=== PATIENT | female | born 1985 | race Two or more races ===

== ENCOUNTER 2020-03-22 11:10 | Emergency (ER) | payer MEDICAID, OTHER ==
[~2020-03-22] VITALS: Ht 165.1 cm; Wt 59.0 kg
[2020-03-22 11:12] VITALS: BP 114/68
[2020-03-22] MEDS ORDERED: ASPirin 81 mg TAB PO ONE (11:30)
== END 2020-03-22 13:43 | disposition left against medical advice (07) ==
LOC: ER 11:10
DX: R07.89 Other chest pain (principal); J40 Bronchitis, not specified as acute or chronic; F41.9 Anxiety disorder, unspecified; R00.0 Tachycardia, unspecified; F12.10 Cannabis abuse, uncomplicated; F17.210 Nicotine dependence, cigarettes, uncomplicated
CPT/HCPCS: 93005

== ENCOUNTER 2021-07-11 19:47 | Observation (INO) | payer MEDICAID ==
[2021-07-11 21:01] LABS: Urine Amorphous Crystal FEW /hpf (None Seen); Urine Bacteria FEW /hpf (None Seen); Urine Blood Negative /uL (Negative); Urine Mucus FEW (None Seen); Urine Specific Gravity 1.009 (1.001-1.035); Urine WBC 1 /hpf (0 - 5)
[2021-07-11 21:20] LABS: Basophils # (auto) 0.1 10 ^3/uL (0-0.2); Basophils % (auto) 0.9 % (0.0-2.0); Eosinophils # (auto) 0.1 10 ^3/uL (0-0.8); Eosinophils % (auto) 0.9 % (0.0-7.0); Hematocrit 34.8 % (36.0-46.0); Hemoglobin 11.4 g/dL (12.2-16.2); Lymphocytes # (auto) 1.9 10 ^3/uL (0.4-5.4); Mean Corpuscular Hemoglobin 31.3 pg (28.0-32.0); Mean Corpuscular Hgb Conc. 32.8 g/dL (32.0-36.0); Mean Corpuscular Volume 95.5 fL (80.0-100.0); Monocytes # (auto) 0.5 10 ^3/uL (0-1.3); Monocytes % (auto) 5.6 % (0.0-12.0); Neutrophils # (auto) 6.1 10 ^3/uL (1.6-8.6); Neutrophils % (auto) 70.6 % (37.0-80.0); Nucleated Red Blood Cells % 0.2 %; Red Blood Cells 3.65 10^6/uL (4.0-5.20); Red Cell Distribution Width 13.6 % (11.8-14.3); White Blood Cell 8.7 10^3/uL (4.4-10.8)
[2021-07-11 21:35] LABS: INR 0.9 (0.9-1.15)
[2021-07-11 21:35] LABS: Alcohol, Urine < 3.0 mg/dL (0-10); Amphetamine Screen, Urine POSITIVE (NEGATIVE); Barbiturate Scree,Urine NEGATIVE (NEGATIVE); Benzodiazephine Screen, Urine NEGATIVE (NEGATIVE); Cannabinoid Screen, Urine NEGATIVE (NEGATIVE); Cocaine Screen, Urine NEGATIVE (NEGATIVE)
[2021-07-11 21:40] LABS: Albumin 2.3 g/dL (3.4-5.0); Calcium 8.5 mg/dL (8.5-10.1); Potassium 3.5 mmol/L (3.5-5.1)
[2021-07-11 21:42] LABS: Opiate Scree,Urine NEGATIVE (NEGATIVE); Phencyclidine Screen, Urine NEGATIVE (NEGATIVE)
[2021-07-11 21:44] LABS: BUN/Creatinine Ratio 11.3; Bilirubin, Total 0.2 mg/dL (0.2-1.0); Total Protein 6.6 g/dL (6.4-8.2)
[2021-07-11] MEDS ORDERED: TERBUTALINE SULFATE 1 MG/ML 1ML VIAL SC ONE ×2 (22:17→22:30)
[2021-07-11] MEDS ORDERED: TERBUTALINE SULFATE 1 MG/ML 1ML VIAL SC SCH (22:45)
[2021-07-13 06:06] LABS: RPR Non Reactive (Non Reactive)
== END 2021-07-11 23:30 | disposition home or self-care (01) ==
LOC: LDRP 19:47
PROVIDERS: ADMIT Obstetrics & Gynecology; ATTEND Obstetrics & Gynecology
DX: O62.9 Abnormality of forces of labor, unspecified (principal); O34.219 Maternal care for unspecified type scar from previous cesarean delivery; O99.333 Smoking (tobacco) complicating pregnancy, third trimester; F17.210 Nicotine dependence, cigarettes, uncomplicated; Z3A.38 38 weeks gestation of pregnancy
CPT/HCPCS: 36415; 59025; 76805; 80053; 80307; 81001; 81002; 85025; 85610; 85730; 86592; 86703; 86762; 86850; 86900; 86901; 87340; 94760; 96372; G0378

== ENCOUNTER 2021-07-13 09:13 | Inpatient (IN) | payer MEDICAID ==
[~2021-07-13] VITALS: Ht 170.2 cm; Wt 77.1 kg
[2021-07-13] VITALS (11 sets, daily range): BP systolic 100–137; BP diastolic 66–93
[2021-07-13] MEDS ORDERED: LACTATED RINGER'S 1,000 ML IV ONE (10:00)
[2021-07-13] MEDS ORDERED: ceFAZolin 1GM/50ML 50 ML IV ONE ×2 (10:00→10:03)
[2021-07-13 10:03] LABS: Urine Bacteria MOD /hpf (None Seen); Urine Blood 2+ /uL (Negative); Urine Specific Gravity 1.014 (1.001-1.035); Urine WBC 104 /hpf (0 - 5)
[2021-07-13 10:16] LABS: Amphetamine Screen, Urine POSITIVE (NEGATIVE); Barbiturate Scree,Urine NEGATIVE (NEGATIVE); Benzodiazephine Screen, Urine NEGATIVE (NEGATIVE); Cannabinoid Screen, Urine NEGATIVE (NEGATIVE); Cocaine Screen, Urine NEGATIVE (NEGATIVE); Opiate Scree,Urine NEGATIVE (NEGATIVE); Phencyclidine Screen, Urine NEGATIVE (NEGATIVE)
[2021-07-13 10:17] LABS: Alcohol, Urine < 3.0 mg/dL (0-10)
[2021-07-13] MEDS ORDERED: MORPHINE SULF PF 2 MG/2 ML SYRG ONE (10:27)
[2021-07-13] MEDS ORDERED: fentaNYL CITRATE 100 MCG/2 ML VL ONE (10:27)
[2021-07-13 10:31] LABS: Basophils # (auto) 0 10 ^3/uL (0-0.2); Basophils % (auto) 0.5 % (0.0-2.0); Eosinophils # (auto) 0 10 ^3/uL (0-0.8); Eosinophils % (auto) 0.4 % (0.0-7.0); Hematocrit 35.3 % (36.0-46.0); Hemoglobin 11.9 g/dL (12.2-16.2); Lymphocytes # (auto) 1.6 10 ^3/uL (0.4-5.4); Lymphocytes % (auto) 16.2 % (10.0-50.0); Mean Corpuscular Hemoglobin 32.4 pg (28.0-32.0); Mean Corpuscular Hgb Conc. 33.6 g/dL (32.0-36.0); Mean Corpuscular Volume 96.4 fL (80.0-100.0); Monocytes # (auto) 0.5 10 ^3/uL (0-1.3); Monocytes % (auto) 5.2 % (0.0-12.0); Neutrophils # (auto) 7.4 10 ^3/uL (1.6-8.6); Neutrophils % (auto) 77.7 % (37.0-80.0); Nucleated Red Blood Cells % 0.3 %; Red Blood Cells 3.66 10^6/uL (4.0-5.20); Red Cell Distribution Width 13.7 % (11.8-14.3); White Blood Cell 9.6 10^3/uL (4.4-10.8)
[2021-07-13 10:48] LABS: Albumin 2.3 g/dL (3.4-5.0); Calcium 8.5 mg/dL (8.5-10.1); Potassium 3.6 mmol/L (3.5-5.1)
[2021-07-13 10:49] LABS: INR 0.92 (0.9-1.15); Partial Thromboplastin Time 27.2 sec (23.6-33.0)
[2021-07-13 10:52] LABS: BUN/Creatinine Ratio 11.1; Bilirubin, Total 0.3 mg/dL (0.2-1.0); Total Protein 6.8 g/dL (6.4-8.2); Uric Acid 5.2 mg/dL (2.6-6.0)
[2021-07-13] MEDS ORDERED: MORPHINE SULFATE INJECTION 2 MG/ML SYRG IV PRN ×2 (11:30→12:00)
[2021-07-13] MEDS ORDERED: LACT. RINGERS/OXYTOCIN 20UNITS 1,000 ML IV ONE (11:30)
[2021-07-13] MEDS ORDERED: GUM (CHEWING) 1 GUM CHEW CHEW ONE (11:30)
[2021-07-13] MEDS ORDERED: ONDANSETRON HCL 4 MG/2 ML VIAL IV PRN ×2 (11:30→12:00)
[2021-07-13] MEDS ORDERED: ceFAZolin 1GM/50ML 50 ML IV SCH ×2 (11:30→19:00)
[2021-07-13] MEDS ORDERED: NALBUPHINE HCL 10 MG/1ml INJECTION SUBCUT ONE (12:00)
[2021-07-13] MEDS ORDERED: diphenhdrAMINE HCL 50 MG/1 ML VL IV PRN (14:30)
[2021-07-13] MEDS: ACETAMINOPHEN IV 1000 MG/100ML (10MG/ML) IV PRN (14:55)
[2021-07-13] MEDS: metroNIDAZOLE 500MG/100ML 100 ML IV SCH (17:20)
[2021-07-13] MEDS: LACTATED RINGER'S 1,000 ML IV SCH (17:47)
[2021-07-13] MEDS: ceFAZolin 1GM/50ML 50 ML IV SCH (19:12)
[2021-07-13] MEDS: HYDROmorphone HCL 2 MG/ML VL IV PRN (20:42)
[2021-07-13 21:54] LABS: Basophils # (auto) 0 10 ^3/uL (0-0.2); Basophils % (auto) 0.3 % (0.0-2.0); Eosinophils # (auto) 0.1 10 ^3/uL (0-0.8); Eosinophils % (auto) 0.9 % (0.0-7.0); Hematocrit 30.1 % (36.0-46.0); Hemoglobin 10.3 g/dL (12.2-16.2); Lymphocytes # (auto) 1.7 10 ^3/uL (0.4-5.4); Lymphocytes % (auto) 21.4 % (10.0-50.0); Mean Corpuscular Hgb Conc. 34.3 g/dL (32.0-36.0); Mean Corpuscular Volume 96.2 fL (80.0-100.0); Monocytes # (auto) 0.4 10 ^3/uL (0-1.3); Monocytes % (auto) 5.5 % (0.0-12.0); Neutrophils # (auto) 5.6 10 ^3/uL (1.6-8.6); Neutrophils % (auto) 71.9 % (37.0-80.0); Nucleated Red Blood Cells % 0.1 %; Red Blood Cells 3.13 10^6/uL (4.0-5.20); Red Cell Distribution Width 13.9 % (11.8-14.3); White Blood Cell 7.8 10^3/uL (4.4-10.8)
[2021-07-14] VITALS (9 sets, daily range): BP systolic 112–137; BP diastolic 71–87
[2021-07-14] MEDS: metroNIDAZOLE 500MG/100ML 100 ML IV SCH ×3 (00:58→16:49)
[2021-07-14] MEDS: ceFAZolin 1GM/50ML 50 ML IV SCH ×3 (03:01→18:29)
[2021-07-14] MEDS: ACETAMINOPHEN IV 1000 MG/100ML (10MG/ML) IV PRN (03:44)
[2021-07-14 06:55] LABS: Basophils # (auto) 0 10 ^3/uL (0-0.2); Basophils % (auto) 0.5 % (0.0-2.0); Eosinophils # (auto) 0 10 ^3/uL (0-0.8); Eosinophils % (auto) 0.6 % (0.0-7.0); Hemoglobin 9.6 g/dL (12.2-16.2); Lymphocytes # (auto) 1.3 10 ^3/uL (0.4-5.4); Lymphocytes % (auto) 16.2 % (10.0-50.0); Mean Corpuscular Hemoglobin 33.1 pg (28.0-32.0); Mean Corpuscular Hgb Conc. 34.3 g/dL (32.0-36.0); Mean Corpuscular Volume 96.3 fL (80.0-100.0); Monocytes # (auto) 0.4 10 ^3/uL (0-1.3); Monocytes % (auto) 5.3 % (0.0-12.0); Neutrophils # (auto) 6.1 10 ^3/uL (1.6-8.6); Neutrophils % (auto) 77.4 % (37.0-80.0); Nucleated Red Blood Cells % 0.3 %; Red Blood Cells 2.91 10^6/uL (4.0-5.20); Red Cell Distribution Width 13.7 % (11.8-14.3); White Blood Cell 7.8 10^3/uL (4.4-10.8)
[2021-07-14] MEDS: LACTATED RINGER'S 1,000 ML IV SCH ×3 (07:06→17:30)
[2021-07-14] MEDS ORDERED: DOCU-94 PO (08:12)
[2021-07-14] MEDS ORDERED: HYDR-4902 PO (08:12)
[2021-07-14] MEDS ORDERED: IBUP800T27 PO (08:13)
[2021-07-14] MEDS: HYDROmorphone HCL 2 MG/ML VL IV PRN (08:58)
[2021-07-14] MEDS ORDERED: HYDROcodone-ACET 5/325MG TAB PO PRN (11:15)
[2021-07-14] MEDS ORDERED: BISACODYL 10 MG RECT SUPP PR PRN (11:15)
[2021-07-14] MEDS: SIMETHICONE 80 MG CHEWABLE TABLET PO SCH ×3 (12:49→22:32)
[2021-07-14] MEDS: IBUPROFEN 800 MG TAB PO PRN (14:13)
[2021-07-14] MEDS: HYDROcodone-ACET 5/325MG TAB PO PRN ×2 (16:41→23:03)
[2021-07-14] MEDS: DOCUSATE SOD 100 MG CAP PO SCH (22:31)
[2021-07-14] MEDS: FERROUS SULFATE 325mg EC TAB PO SCH (22:31)
[2021-07-15] MEDS: metroNIDAZOLE 500MG/100ML 100 ML IV SCH ×3 (00:27→16:48)
[2021-07-15] MEDS: IBUPROFEN 800 MG TAB PO PRN ×3 (00:32→20:14)
[2021-07-15] MEDS: LACTATED RINGER'S 1,000 ML IV SCH ×3 (01:30→17:30)
[2021-07-15] MEDS: ceFAZolin 1GM/50ML 50 ML IV SCH ×3 (03:07→19:02)
[2021-07-15] MEDS: HYDROcodone-ACET 5/325MG TAB PO PRN ×2 (03:13→17:38)
[2021-07-15 03:18] VITALS: BP 129/75
[2021-07-15] MEDS: SIMETHICONE 80 MG CHEWABLE TABLET PO SCH ×4 (05:40→21:52)
[2021-07-15 07:10] VITALS: BP 119/78
[2021-07-15] MEDS: FERROUS SULFATE 325mg EC TAB PO SCH ×2 (09:56→21:52)
[2021-07-15] MEDS: DOCUSATE SOD 100 MG CAP PO SCH ×2 (09:56→21:52)
[2021-07-15] MEDS ORDERED: DOCUSATE CALCIUM 240 MG CAP PO SCH (10:00)
[2021-07-15 11:20] VITALS: BP 129/60
[2021-07-15] MEDS ORDERED: CEPH-322 PO (13:00)
[2021-07-15 15:30] VITALS: BP 118/70
[2021-07-15 19:00] VITALS: BP 116/77
[2021-07-15 23:00] VITALS: BP 140/93
[2021-07-16] MEDS: LACTATED RINGER'S 1,000 ML IV SCH (01:30)
[2021-07-16] MEDS: HYDROcodone-ACET 5/325MG TAB PO PRN (03:15)
[2021-07-16 03:16] VITALS: BP 116/88
[2021-07-16] MEDS: SIMETHICONE 80 MG CHEWABLE TABLET PO SCH (05:55)
[2021-07-16 06:06] LABS: RPR Non Reactive (Non Reactive)
[2021-07-16 07:00] VITALS: BP 121/68
== END 2021-07-16 07:48 | disposition home or self-care (01) | DRG 540 ==
LOC: LDRP 09:13 → OBSVTOIN 10:02 → LDRP 14:00
PROVIDERS: ADMIT Obstetrics & Gynecology; ATTEND Obstetrics & Gynecology
PROC: 10D00Z1 Extraction of Products of Conception, Low, Open Approach (ICD-10-PCS; principal; 2021-07-13 10:42)
DX: O34.211 Maternal care for low transverse scar from previous cesarean delivery (principal); O99.324 Drug use complicating childbirth; O77.0 Labor and delivery complicated by meconium in amniotic fluid; O75.89 Other specified complications of labor and delivery; R71.0 Precipitous drop in hematocrit; F15.90 Other stimulant use, unspecified, uncomplicated; Z37.0 Single live birth; Z20.822 Contact with and (suspected) exposure to COVID-19; Z3A.39 39 weeks gestation of pregnancy
CPT/HCPCS: 36415; 59025; 76815; 80053; 80307; 81001; 81002; 84550; 85025; 85610; 85730; 86592; 86850; 86900; 86901; 87340; 87426; 94760; 94762; 96360; 96361; 96374; 96375; G0378; J0131; J0690; J3490

== ENCOUNTER 2022-02-14 23:43 | Emergency (ER) | payer MEDICAID ==
[~2022-02-14] VITALS: Ht 170.2 cm; Wt 59.0 kg
[~2022-02-14 23:43] MED LIST: CEPH-322 PO; DOCU-94 PO; HYDR-4902 PO; IBUP800T27 PO
[2022-02-14 23:45] VITALS: BP 97/73
== END 2022-02-15 02:58 | disposition left against medical advice (07) ==
LOC: ER 23:43
DX: R07.9 Chest pain, unspecified (principal); Z53.21 Procedure and treatment not carried out due to patient leaving prior to being seen by health care provider
CPT/HCPCS: 71045; 93005